=== PATIENT | female | born 1970 | race American Indian/Alaskan Native ===

== ENCOUNTER → 2018-11-13 18:59 | Outpatient (CLI) | payer OTHER, SELFPAY ==
--- NOTE | 2018-11-13 19:08 | DI.MRI.S_ITS ---
PROCEDURE: MR SHOULDER LT WO CON INDICATIONS: LEFT SHOULDER PAIN TECHNIQUE: Noncontrast oblique coronal T2 fast spin echo with fat saturation, oblique sagittal T1 spin echo and T2 fast spin echo with fat saturation, axial T1 spin echo and T2 fast spin echo with fat saturation through the shoulder. COMPARISON: None. FINDINGS: Image quality: Excellent. Rotator cuff: The supraspinatus and subscapularis tendons appear intact throughout but there is a dilated fluid within and immediately adjacent to the far lateral border of the infraspinatus muscle and tendon and the teres minor laterally also. Sagittal images demonstrate no muscle atrophy. Bones and bursae: No bone marrow contusions or fractures. No significant acromioclavicular joint degeneration. The acromion demonstrates conventional anatomy, without an os acromiale. No pathologic subacromial-subdeltoid or subcoracoid bursal fluid is present. Capsule and soft tissues: In the absence of intra-articular contrast, the labrum and glenohumeral ligaments appear intact. The long head of the biceps tendon demonstrates normal location and morphology. The rotator interval appears normal, without fibrosis. The coracohumeral ligament is normal in thickness. IMPRESSION: Far lateral partial-thickness tear involving both the tendon and adjacent musculotendinous junction of the infraspinatus and teres minor muscles. The supraspinatus is intact, no osseous injury is found. Dictated by: Rian Antonio M.D. on 11/17/2018 at 12:01 Approved by: Rian Antonio M.D. on 11/17/2018 at 12:06
== END ==
PROVIDERS: Visit Provider Orthopaedic Surgery
DX: M25.512 Pain in left shoulder (principal); M75.112 Incomplete rotator cuff tear or rupture of left shoulder, not specified as traumatic
CPT/HCPCS: 73221